=== PATIENT | male | born 1970 | race African-American/Black ===

== ENCOUNTER 2018-12-26 00:31 | Inpatient (IN) | payer SELFPAY ==
[2018-12-26 01:44] LABS: Troponin I 0.046 ng/mL (< 0.028)
[2018-12-26 03:10] LABS: Hemoglobin A1c 6.2 % (4.0-6.0)
[2018-12-26] MEDS ORDERED: Labetalol HCl 100 MG/20 ML VIAL ONE (03:46)
[2018-12-26 05:05] LABS: Troponin I 0.043 ng/mL (< 0.028)
[2018-12-26] MEDS ORDERED: Acetaminophen 325 MG TAB PO PRN (06:39)
[2018-12-26] MEDS ORDERED: Ondansetron PF 4 MG/2 ML Vial IVP PRN (06:39)
[2018-12-26] MEDS ORDERED: Sodium Chloride 0.9% 1,000 ML IV SCH (06:45)
--- NOTE | 2018-12-26 07:38 | ULT ---
PRELIMINARY REPORT/[facility]/EMERGENCY AFTER HOURS PROCEDURE: EXAM: US Duplex Right Lower Extremity Veins, Limited EXAM DATE/TIME: 12/26/2018 1:20 AM CLINICAL HISTORY: 48 years old, male; Pain and signs and symptoms; Edema, localized; Lower extremity, right; Leg, lower; Patient HX: Rle pain/edema from knee to ankle x 2 wks TECHNIQUE: Imaging protocol: Real-time Duplex ultrasound of the Right Lower Extremity with 2-D mahmood scale, color Doppler flow and spectral waveform analysis. Limited exam was focused on the right lower extremity veins. COMPARISON: No relevant prior studies available. FINDINGS: Right deep veins: The common femoral, femoral, proximal profunda femoral and popliteal veins are patent without thrombus. Normal Doppler waveforms. Normal compressibility and/or augmentation response. Right superficial veins: Saphenofemoral junction is patent without thrombus. Soft tissues: Rounded 2.4 x 2.4 x 7.1 cm right popliteal cyst with internal echoes. Lymph nodes: Rounded 2-4 cm right groin lymph nodes. IMPRESSION: 1. No evidence of deep venous thrombosis in the right lower extremity on current study. 2. Right groin lymph nodes. 3. Rounded 2.4 x 2.4 x 7.1 cm complex right popliteal cyst. Thank you for allowing us to participate in the care of your patient. Dictated and Authenticated by: Jones Walker MD 12/26/2018 3:07 AM Central Time ([place] & [place]) FINAL REPORT RIGHT LOWER EXTREMITY VENOUS DOPPLER ULTRASOUND: Date: 12/26/18 COMPARISON: None HISTORY: Edema, pain, swelling, assess for DVT FINDINGS: I agree with the preliminary [facility] report. Right lower extremity venous structures are asses sed with color flow and spectral analysis. The right common femoral vein, greater saphenous vein, profunda femoral vein, femoral vein, popliteal vein, and posterior tibial veins are patent. No eviden ce for DVT. Incidental note is made of a complex Vasquez's cyst measuring up to 7 cm. Mildly prominent inguinal nodes are noted on the right. IMPRESSION: No evidence for deep venous thrombosis of the right lower extremity. Code QA Transcribed Date/Time: 12/26/2018 8:32 AM
[2018-12-26 08:51] VITALS: BMI 43.1
[2018-12-26 12:05] LABS: #Basophils 0.1 thou/uL (0.0-0.2); #Eosinphils 0.1 thou/uL (0.0-0.7); #Lymphocytes 2.2 thou/uL (1.20-3.40); #Monocytes 0.7 thou/uL (0.11-0.59); %Basophils 0.9 % (0.0-1.0); %Eosinophils 1.9 % (0.0-10.0); %Lymphocytes 30.8 % (21.0-51.0); %Monocytes 10.1 % (0.0-10.0); %Neutrophils 56.3 % (42.0-75.0); Hemoglobin 13.4 g/dL (14.0-18.0); Mean Corpuscular HGB CONC 31.8 g/dL (32.0-36.0); Mean Corpuscular Hemoglobin 28.6 pg (27.0-31.0); Mean Platelet Volume 8.2 fL (7.4-10.4); Platelet Count 264 thou/uL (130-400); Red Blood Cell (RBC) Count 4.69 mill/uL (4.70-6.10); White Blood Cell (WBC) Count 7.2 thou/uL (4.8-10.8)
[2018-12-26 12:57] LABS: Anion Gap 14 mmol/L (10-20); BUN (Urea Nitrogen) 14 mg/dL (8.9-20.6); CK (CPK) 279 U/L (30-200); Calc. Creatinine Clearance 170 mL/min (70-130); Calcium 9.3 mg/dL (7.8-10.44); Carbon Dioxide 27 mmol/L (22-29); Chloride 103 mmol/L (98-107); Estimated GFR-MDRD 80; Glucose 96 mg/dL (70-105); Potassium 3.7 mmol/L (3.5-5.1); Sodium 140 mmol/L (136-145)
[2018-12-26 13:11] LABS: Lactic Acid 1.3 mmol/L (0.5-2.2)
[2018-12-26] MEDS ORDERED: hydrALAZINE 20 MG/ML VIAL SLOW IVP PRN ×2 (13:23→17:00)
[2018-12-26] MEDS ORDERED: Amlodipine 10 MG TAB PO SCH (13:30)
[2018-12-26] MEDS ORDERED: Losartan 25 MG TAB PO SCH (13:45)
--- NOTE | 2018-12-26 14:51 | RAD ---
RIGHT KNEE 4 VIEWS: Date; 12/26/18 HISTORY: Right lower extremity pain and swelling. FINDINGS: Minimal generalized soft tissue swelling/edema in the subcutaneous tissues of the knee and upper port ion of the leg. Minimal increased density in the suprapatellar recess, possibly some joint fluid. No evidence for acute fracture or dislocation. IMPRESSION: No acute fracture or dislocation. Very mild degenerative changes. Nonspecific subcutaneous fat strand ing and swelling. Possible joint effusion. POS: TPC
--- NOTE | 2018-12-26 14:55 | RAD ---
RIGHT TIBIA AND FIBULA 2 VIEWS: HISTORY: Right lower leg pain and swelling. FINDINGS: Diffuse subcutaneous fat stranding, probably edematous changes or some cellulitis. Soft tissue densi ty in the suprapatellar region, possibly joint effusion. No fracture, dislocation, or other signific ant acute osseous abnormality. IMPRESSION: Nonspecific diffuse subcutaneous fat stranding. Possible joint effusion of the knee. No other acute process. POS: TPC
--- NOTE | 2018-12-26 16:35 | HP ---
CHIEF COMPLAINT: Right leg swelling and shortness of breath. HISTORY OF PRESENT ILLNESS: Mr. Cortez is a 48-year-old man with a known history of uncontrolled hypertension and previous "mini strokes." The patient states he presented to the emergency department due to progressively worsening swelling and pain involving the right lower extremity for the last 2 weeks. He is able to bear weight and has normal range of motion, but has noted increasing discomfort. He also reports feeling short of breath for the last month, particularly with exertion and states that has also worsened. He denies having any underlying COPD or asthma. The patient denies any cough or hemoptysis. He also denies any trauma to the right lower leg. Has not had any associated fevers, chills, or sweats. Denies having any chest pain associated with shortness of breath. The patient states he has not followed up with his primary care physician for approximately a year and 5 months. He states this is due to financial reasons. In the emergency department, he was given labetalol due to uncontrolled blood pressure of 204/115. His blood pressure improved to 159 systolic. He also underwent a venous Doppler, which showed no evidence of DVT in the right lower extremity. He was noted to have a complex Vasquez cyst measuring up to 7 cm with mildly prominent inguinal nodes on the right. REVIEW OF SYSTEMS: The patient denies having any recent fevers, chills, or sweats. No headaches or dizziness. No chest pain or palpitations, but does report shortness of breath with exertion and at times at baseline. He states he has gained weight in the last 3 months. Has not had any abdominal pain or cramping. Reports moving his bowel normal. No urinary symptoms. Again, denies having any trauma or injuries to the right lower leg. Reports normal sensation. Denies having any wounds. All other review of systems apart from those mentioned above in HPI are negative. PAST MEDICAL HISTORY: 1. Uncontrolled hypertension. 2. Lost to follow up with primary care physician due to financial reasons. 3. History of CVA in the past without residual effects. 4. Obesity. 5. Hyperlipidemia. PAST SURGICAL HISTORY: Left knee surgery. SOCIAL HISTORY: The patient denies any tobacco use, alcohol use, or illicit drug use. ALLERGIES: ASPIRIN, CAUSES UNKNOWN REACTION. CURRENT MEDICATIONS: 1. Methocarbamol. 2. Atorvastatin. 3. Metoprolol succinate. 4. Amlodipine. 5. Losartan. PHYSICAL EXAMINATION: GENERAL: The patient appears obese, well developed, and in no acute distress. VITAL SIGNS: Temperature 97.6, pulse 72, respirations 16, O2 saturation 99% on 2 L by nasal cannula, blood pressure 180/112. HEENT: Normocephalic and atraumatic. Pupils are equal, round, and reactive to light. oropharynx is clear. NECK: Supple. No lymphadenopathy. LUNGS: Clear to auscultation bilaterally without any wheezes, rales, or rhonchi. CARDIAC: Regular rate and rhythm. ABDOMEN: Soft, nontender, and nondistended. Normoactive bowel sounds present. EXTREMITIES: Right lower leg notable for swelling compared to the left. Slightly warm to touch. No significant skin changes. No wounds. Sensation intact. Normal range of motion. Pedal pulses are present and equal bilaterally. NEUROLOGIC: Alert and oriented x3. No neuro deficits. SKIN: Without rash or jaundice. LABORATORY DATA: White blood count , hemoglobin 13.4, hematocrit 42.2 , and platelets 264. D-dimer 0.64. Sodium 140, potassium 3.7, chloride 103, carbon dioxide 27, BUN 14, creatinine 1.18, GFR 80, and glucose 96. Hemoglobin A1c 6.2. Lactic acid 1.3. Calcium 9.3. CK 279. Indeterminate troponins: 0.047, 0.046, 0.043. CRP 0.96. BNP 109.9. Procalcitonin 0.03. IMAGING DATA: As mentioned above in HPI. IMPRESSION AND PLAN: Mr. Cortez is a pleasant 48-year-old man, who is being admitted for management of the following. 1. Shortness of breath on exertion. This has been progressive for the last month. The patient is a nonsmoker. CT angiogram done in December 2018 showing no evidence of thromboembolism. BNP mildly raised at 109.9. We will obtain an echo. 2. Right lower leg swelling. No evidence of deep venous thrombosis on Doppler. No clear evidence of cellulitis. The patient is afebrile with a normal white count , normal lactic acid. It could be acute venous stasis. We will obtain x-rays to rule out any underlying bone abnormality such as malignancy. 3. Uncontrolled hypertension. We will resume his regular home medications. We will also initiate hydralazine p.r.n. 4. Gastrointestinal prophylaxis. 5. Deep venous thrombosis prophylaxis with MARGO hose stockings. 6. Full code status. His surrogate decision maker is his sister, Larissa Mclean. The patient's case was discussed with Dr. Bennett, who agrees with plan of care as described above. ADDENDUM: Patient with persistently elevated BP despite being given home meds. (188/113). Given hydralazine. Awaiting repeat BP. Flipped to inpatient re: malignant hypertension. Patient asymptomatic. Hydralazine increased to 20 mg IV every 4 hours prn, and we have added Labetalol 40 mg every 6 hours prn. Above as per Dr. Bennett recommendation. XR: showed 7cm bakers cyst, otherwise unremarkable. Swelling possibly due to cyst. For ortho fup as outpatient. Job ID: [id number] MTDD
[2018-12-26] MEDS ORDERED: Labetalol HCl 100 MG/20 ML VIAL SLOW IVP PRN (17:00)
[2018-12-26] MEDS: Atorvastatin Calcium 40 MG TAB PO SCH (19:45)
[2018-12-26] MEDS: Labetalol HCl 100 MG/20 ML VIAL SLOW IVP PRN (20:24)
[2018-12-27 02:27] LABS: Medtox Reader # READER 1; THC/Cannabinoid Screen Detected (NotDetected)
[2018-12-27 02:28] LABS: Amphetamine Not Detected (NotDetected); Barbiturates Screen Not Detected (NotDetected); Benzodiazepine Screen Not Detected (NotDetected); Cocaine Metabolite Screen Not Detected (NotDetected); Medtox Control Line Valid? VALID (VALID); Methadone Not Detected (NotDetected); Methamphetamine Not Detected (NotDetected); Opiate Screen Not Detected (NotDetected); Oxycodone Screen Not Detected (NotDetected); Phencyclidine (PCP) Not Detected (NotDetected); Tricyclic Screen Not Detected (NotDetected)
--- NOTE | 2018-12-27 08:25 | PDOC.PN ---
- Subjective Encounter Start Date: 12/27/18 Encounter Start Time: 08:23 Subjective: no complaints - Objective MAR Reviewed: Yes Vital Signs & Weight: Vital Signs (12 hours) Temp Pulse Resp BP BP Pulse Ox 12/27/18 07:16 98.4 F 76 16 157/105 H 95 12/27/18 03:55 98.0 F 80 22 H 167/100 H 95 12/26/18 23:32 75 159/89 H 12/26/18 20:44 84 167/97 H 12/26/18 20:34 166/90 H 12/26/18 20:33 181/97 H 12/26/18 20:24 74 181/97 H Weight Weight 345 lb 1.6 oz I&O: 12/26/18 12/27/18 12/28/18 06:59 06:59 06:59 Intake Total 720 Balance 720 Result Diagrams: 12/26/18 11:52 12/26/18 11:52 Phys Exam - Physical Examination Neck: no JVD Respiratory: clear to auscultation bilateral Cardiovascular: RRR, no significant murmur Gastrointestinal: soft, positive bowel sounds Musculoskeletal: edema present Dx/Plan (1) Hypertensive urgency Code(s): I16.0 - HYPERTENSIVE URGENCY Status: Acute (2) Edema Code(s): R60.9 - EDEMA, UNSPECIFIED Status: Acute (3) Demand ischemia Code(s): I24.8 - OTHER FORMS OF ACUTE ISCHEMIC HEART DISEASE Status: Acute (4) Dyslipidemia Code(s): E78.5 - HYPERLIPIDEMIA, UNSPECIFIED Status: Acute - Plan po apresoline added, increase metoprolol to 50 bid -: cont losartan, amlodipine -: asa * .
[2018-12-27] MEDS ORDERED: Non-Formulary Item 1 EACH (Losartan Potassium [Cozaar] 100 MG) PO SCH (09:00)
[2018-12-27] MEDS ORDERED: Losartan 25 MG TAB PO SCH (09:00)
[2018-12-27] MEDS: Amlodipine 10 MG TAB PO SCH (09:19)
[2018-12-27] MEDS: hydrALAZINE 25 MG TAB PO SCH ×2 (09:19→19:48)
[2018-12-27] MEDS: Metoprolol Tartrate 50 MG TAB PO SCH ×2 (09:25→19:49)
[2018-12-27] MEDS: Labetalol HCl 100 MG/20 ML VIAL SLOW IVP PRN (16:05)
[2018-12-27] MEDS: Atorvastatin Calcium 40 MG TAB PO SCH (19:49)
[2018-12-28] MEDS: hydrALAZINE 25 MG TAB PO SCH ×2 (09:16→20:32)
[2018-12-28] MEDS: Amlodipine 10 MG TAB PO SCH (09:16)
[2018-12-28] MEDS: Metoprolol Tartrate 50 MG TAB PO SCH ×2 (09:16→20:32)
[2018-12-28] MEDS ORDERED: Labetalol HCl 100 MG/20 ML VIAL SLOW IVP PRN (10:38)
[2018-12-28] MEDS ORDERED: cloNIDine 0.1 MG TAB PO PRN (10:38)
[2018-12-28] MEDS: Atorvastatin Calcium 40 MG TAB PO SCH (20:32)
--- NOTE | 2018-12-28 22:13 | PDOC.PN ---
- Subjective Encounter Start Date: 12/28/18 Encounter Start Time: 10:30 Patient seen and examined for HTN urgency. No CP/palpitations/ hematuria/flank pain. No new complaints. No overnight events - Objective MAR Reviewed: Yes Vital Signs & Weight: Vital Signs (12 hours) Temp Pulse Resp BP BP BP Pulse Ox 12/28/18 20:32 167/94 H 12/28/18 20:00 98.4 F 70 18 167/94 H 95 12/28/18 18:35 182/107 H 12/28/18 17:45 99.4 F 71 18 179/108 H 94 L 12/28/18 12:09 98.7 F 73 18 174/111 H 98 Weight Weight 345 lb 1.6 oz I&O: 12/27/18 12/28/18 12/29/18 06:59 06:59 06:59 Intake Total 720 1300 1250 Output Total 1200 975 Balance 720 100 275 Result Diagrams: 12/26/18 11:52 12/26/18 11:52 EKG Reviewed by me: Yes (Tele SR) Phys Exam - Physical Examination Constitutional: NAD Respiratory: no wheezing, no rhonchi Cardiovascular: RRR, no rub Gastrointestinal: soft, non-tender, positive bowel sounds Musculoskeletal: no edema Dx/Plan - Plan DVT proph w/SCDs IMPRESSION: Hypertensive urgency Demand ischemia/Type 2 SD Dyslipidemia Cannabis abuse Impaired glucose tolerance IMANI Morbid Obesity BMI 43.1 PLAN: Cont Metoprolol Cont Amlodipine Cont Hydralazine Counselled on HTN Sleep study as outpt Review of Systems - Review of Systems Respiratory: negative: Cough, Dry, Shortness of Breath, Hemoptysis, SOB with Excertion, Pleuritic Pain, Sputum, Wheezing Cardiovascular: negative: chest pain, palpitations, orthopnea, paroxysmal nocturnal dyspnea, edema, light headedness, other Gastrointestinal: negative: Nausea, Vomiting, Abdominal Pain, Diarrhea, Constipation, Melena, Hematochezia, Other - Medications/Allergies Allergies/Adverse Reactions: Allergies Allergy/AdvReac Type Severity Reaction Status Date / Time aspirin Allergy Verified 12/26/18 08:54 Medications: Current Medications Amlodipine Besylate (Norvasc) 10 mg PO DAILY [facility] Last Admin: 12/28/18 09:16 Dose: 10 mg Atorvastatin Calcium (Lipitor) 40 mg PO HS [facility] Last Admin: 12/28/18 20:32 Dose: 40 mg Clonidine (Catapres) 0.1 mg PO Q4H PRN PRN Reason: SBP Greater Than 180 Last Admin: 12/28/18 18:35 Dose: 0.1 mg Hydralazine HCl (Apresoline) 75 mg PO BID [facility] Last Admin: 12/28/18 20:32 Dose: 75 mg Labetalol HCl (Normodyne) 10 mg SLOW IVP Q4H PRN PRN Reason: Systolic BP > 180 Metoprolol Tartrate (Lopressor) 50 mg PO BID [facility] Last Admin: 12/28/18 20:32 Dose: 50 mg Sodium Chloride (Flush - Normal Saline) 10 ml IVF Q12HR [facility] Last Admin: 12/28/18 20:35 Dose: 10 ml Sodium Chloride (Flush - Normal Saline) 10 ml IVF PRN PRN PRN Reason: Saline Flush
[2018-12-29] MEDS: Amlodipine 10 MG TAB PO SCH (08:50)
[2018-12-29] MEDS: hydrALAZINE 25 MG TAB PO SCH (08:50)
[2018-12-29] MEDS: Metoprolol Tartrate 50 MG TAB PO SCH (09:36)
[2018-12-29 10:50] VITALS: BP 150/88
--- NOTE | 2018-12-29 12:31 | PDOC.EVN ---
Event Note - Event Note Event Note: Patient was advised to take extra dose of Hydralazine if BP >160. Daily BP monitoring advised - Patient stated understanding.
--- NOTE | 2018-12-29 12:51 | DIS ---
DATE OF ADMISSION: 12/26/2018 DATE OF DISCHARGE: 12/29/2018 DISCHARGE DISPOSITION: Home. FOLLOWUP: Follow up with primary care physician at [facility] in 1 week. ALLERGIES: THE PATIENT IS ALLERGIC TO ASPIRIN. THE PATIENT WAS SEEN ON THE DAY OF DISCHARGE. DENIES ANY NEW COMPLAINTS. NO CHEST PAIN, SHORTNESS OF BREATH, PALPITATIONS. DISCHARGE MEDICATIONS: 1. Amlodipine 10 mg daily. 2. Carvedilol 6.25 mg b.i.d. 3. Hydralazine 50 mg b.i.d. The patient was advised to monitor blood pressure on a daily basis and to maintain a log. The patient was also extensively counseled on DASH diet. He was counseled on impaired glucose tolerance as well. SIGNIFICANT LABORATORY DATA: Hemoglobin A1c 6.2. Troponin 0.043. Sodium 140, potassium 3.7. WBC 7.2 with hemoglobin 13.4. Urine drug screen positive for cannabinoid. Echocardiogram showed left ventricular ejection fraction of 55% to 60% with moderate concentric left ventricular hypertrophy, mild mitral regurgitation, and mild tricuspid regurgitation. Right lower extremity Doppler was negative for DVT. BRIEF HOSPITAL COURSE: The patient is a 48-year-old male with hypertension, currently not compliant with medications, presented to the emergency room with right lower extremity swelling along with shortness of breath. His blood pressure in the emergency room was 223/129. Right lower extremity Doppler was negative for DVT. He was transferred from [place] [facility] to this facility for hospital admission. Please refer to the history and physical for further details. The patient was admitted to the hospital with a diagnosis of hypertensive urgency. The blood pressure medicines were optimized by Dr. Joyce Bennett. I took over the patient yesterday. His blood pressure has remained stable. His blood pressure at the time of discharge is 150/88. He was extensively counseled on lifestyle modification. Cannabis cessation was emphasized. He will also require a sleep study as outpatient. The risks not limited to life threatening stroke from hypertension discussed with the patient. He stated understanding. He was extensively counseled to be compliant with all of his antihypertensives. One-month supply of the medications have been arranged from [facility]. He appears stable for discharge. FINAL DIAGNOSES: 1. Shortness of breath secondary to hypertensive urgency. 2. Right lower extremity swelling. Deep vein thrombosis ruled out. 3. Elevated troponins in the indeterminate range secondary to demand ischemia/type 2 myocardial infarction. 4. Hypertensive heart disease. 5. Dyslipidemia. 6. Cannabis abuse. 7. Impaired glucose tolerance. 8. Suspected obstructive sleep apnea. 9. Morbid obesity with a BMI of 43.1. PLAN: Plan was discussed with the patient in detail. He stated understanding. Job ID: [id number]
[2018-12-29 13:24] VITALS: TEMP 98.4
== END 2018-12-29 15:07 | disposition home or self-care (01) | DRG 281 ==
LOC: ERS 00:31 → 2NO 07:01
PROVIDERS: ADMIT Hospitalist; ATTEND Hospitalist
DX: I16.0 Hypertensive urgency (principal); I21.A1 Myocardial infarction type 2; Z68.41 Body mass index [BMI] 40.0-44.9, adult; E66.9 Obesity, unspecified; E78.5 Hyperlipidemia, unspecified; M71.20 Synovial cyst of popliteal space [Baker], unspecified knee; R60.9 Edema, unspecified; F12.10 Cannabis abuse, uncomplicated; G47.33 Obstructive sleep apnea (adult) (pediatric); E66.01 Morbid (severe) obesity due to excess calories; R73.02 Impaired glucose tolerance (oral); Z86.73 Personal history of transient ischemic attack (TIA), and cerebral infarction without residual deficits; Z88.8 Allergy status to other drugs, medicaments and biological substances; Z71.51 Drug abuse counseling and surveillance of drug abuser
CPT/HCPCS: 36415; 80048; 80306; 82550; 83036; 83605; 83880; 84145; 84484; 85025; 85379; 86140; 93306; 94660; 96374; J0360

== ENCOUNTER 2020-02-04 00:28 | Inpatient (IN) | payer OTHER ==
[2020-02-04 01:27] VITALS: BMI 44.5
[2020-02-04] MEDS ORDERED: Acetaminophen 325 MG TAB PO PRN (02:27)
[2020-02-04] MEDS ORDERED: Senokot S 8.6-50 MG TAB PO PRN (02:27)
[2020-02-04] MEDS ORDERED: Diabetic Tussin 200 MG/10 ML UDCUP PO PRN (02:34)
[2020-02-04] MEDS: hydrALAZINE 20 MG/ML VIAL SLOW IVP PRN ×2 (02:40→16:11)
[2020-02-04] MEDS ORDERED: Potassium Chloride 20 MEQ TAB PO SCH (02:45)
[2020-02-04 03:00] LABS: #Basophils 0.1 thou/uL (0.0-0.2); #Eosinphils 0.1 thou/uL (0.0-0.7); #Lymphocytes 2.6 thou/uL (1.20-3.40); #Monocytes 0.8 thou/uL (0.11-0.59); #Neutrophils 4.7 thou/uL (1.40-6.50); %Basophils 0.6 % (0.0-1.0); %Eosinophils 1.1 % (0.0-10.0); %Lymphocytes 31.5 % (21.0-51.0); %Monocytes 9.6 % (0.0-10.0); %Neutrophils 57.3 % (42.0-75.0); Hemoglobin 13.8 g/dL (14.0-18.0); Mean Corpuscular HGB CONC 32.5 g/dL (32.0-36.0); Mean Corpuscular Hemoglobin 29.5 pg (27.0-31.0); Mean Corpuscular Volume 90.8 fL (78.0-98.0); Mean Platelet Volume 8.6 fL (7.4-10.4); Platelet Count 255 thou/uL (130-400); RBC Distribution Width 13.5 % (11.5-14.5); Red Blood Cell (RBC) Count 4.68 mill/uL (4.70-6.10); White Blood Cell (WBC) Count 8.2 thou/uL (4.8-10.8)
[2020-02-04 03:19] LABS: Troponin I 0.117 ng/mL (< 0.028)
[2020-02-04 03:23] LABS: ALT (SGPT) 25 U/L (8-55); AST (SGOT) 24 U/L (5-34); Albumin 4.1 g/dL (3.5-5.0); Alkaline Phosphatase 82 U/L (40-110); Anion Gap 14 mmol/L (10-20); BUN (Urea Nitrogen) 12 mg/dL (8.9-20.6); Bilirubin, Total 0.6 mg/dL (0.2-1.2); Calc. Creatinine Clearance 176 mL/min (70-130); Calcium 9.3 mg/dL (7.8-10.44); Carbon Dioxide 27 mmol/L (22-29); Cardiac Risk 3.7 (Less than 4.5); Chloride 102 mmol/L (98-107); Cholesterol 162 mg/dl (< 200 Desired); Estimated GFR-MDRD 81; Globulin 3.3 g/dL (2.4-3.5); Glucose 107 mg/dL (70-105); HDL Cholesterol 44 mg/dL (>60 Neg Risk); LDL Cholesterol, Calculated 95 mg/dL; Potassium 3.6 mmol/L (3.5-5.1); Protein, Total 7.4 g/dL (6.0-8.3); Sodium 139 mmol/L (136-145); Triglycerides 117 mg/dL (Less than 150)
--- NOTE | 2020-02-04 03:26 | HP ---
PRIMARY CARE PHYSICIAN: None. CHIEF COMPLAINT: Shortness of breath. HISTORY OF PRESENT ILLNESS: Mr. Cortez is a 49-year-old man, who went to the ER in [place] complaining of a cough and shortness of breath x3 days. The cough is nonproductive. He reports that he is supposed to be taking meds for hypertension, but has not been taking it for quite some time. He has been unable to see his primary care or get them refilled for quite some time due to finances. He reports he has chronic knee pain and back pain which cause him to be disabled and unable to work. He denies any fevers, any abdominal pain, denies any chills. Supposedly he has some sleep apnea, but he does not have a CPAP machine at home. Past medical history is pertinent for hypertension, hyperlipidemia, has had a TIA in the past. In the emergency room over in [place], they did a chest x-ray which was unremarkable. Lab work; hemoglobin 13.3, white blood cell count is 9.2, hematocrit 42. Chemistry; potassium 3.2. CK was 558. Troponin in the indeterminate range of 0.106. BNP is 143. When he was in the emergency room, when they triaged him, his blood pressure was significantly high. Initially, it was 237/137. By the time he was transferred to [facility] for admission, it was down to 176/122. He was given Lovenox, Nitro-Bid transdermal 1 inch, nifedipine 30 mg at 2244 and then sent over to [place] for admission. He did have an echocardiogram in December 2018 which showed EF of 55% to 60% and a small amount of pericardial effusion at that time. The patient has been admitted over for further management of his blood pressure. He has also had a COVID-19 test that was done here, but ordered in [place]. He was admitted here in December 2018 for similar symptoms and was put on several medications which evidently he has not had filled in quite some time. REVIEW OF SYSTEMS: Denies fever or chills. Reports shortness of breath and a cough. Denies any fevers. Denies any abdominal pain, nausea, vomiting, or diarrhea. Does report pain in the back of his legs which he reports is chronic. PAST MEDICAL HISTORY: Pertinent for uncontrolled hypertension, history of a CVA in the past without any residual effects, obesity, hyperlipidemia, hypertension. PAST SURGICAL HISTORY: He has had surgery on his left knee. SOCIAL HISTORY: Denies any alcohol or drug use. No smoking history. ALLERGIES: ASPIRIN. CURRENT MEDICATIONS: He is not sure. In our system, he has amlodipine 10 mg p.o. daily, Coreg 6.25 mg p.o. b.i.d., and hydralazine 50 mg p.o. b.i.d. that he was discharged on in December 2018. PHYSICAL EXAMINATION: VITAL SIGNS: Blood pressure 176/122, pulse is 82, respiratory rate is 20, temperature is 98.8, PO2 sats are 98% on room air. CONSTITUTIONAL: The patient is nontoxic appearing. He is alert and oriented to person, place, and time. HEAD: Atraumatic and normocephalic. EYES: Pupils are equally round and reactive to light. Extraocular muscles are intact. ENT: Mouth exam is normal. Mucous membranes are moist. NECK: Normal range of motion. Trachea is midline. RESPIRATORY: Chest expansion is equal. Scattered rales in the bilateral bases, otherwise clear. CARDIOVASCULAR: S1, S2. No abnormal heart sounds. ABDOMEN: Nontender. Bowel sounds are heard. BACK: Normal range of motion. No tenderness. UPPER EXTREMITIES: Normal range of motion. Motor strength is normal. Radial pulses are normal. LOWER EXTREMITIES: Normal range of motion. Motor strength is normal. Pedal pulses are normal. There is no edema noted. NEURO: The patient is oriented to person, place, and time. Speech is normal. SKIN: Warm and dry visualized. IMAGING STUDIES: EKG: Normal sinus rhythm, beats per minute at 84, nonspecific inferior T-waves, ST segments are normal. ASSESSMENT AND PLAN: 1. Hypertensive urgency. We will restart his home medications that we had him on here a year ago. We are awaiting a call from his sister to verify which medications he is supposed to be taking. We will add p.r.n. medications for coverage as needed. Add an echocardiogram at a D-dimer. 2. With the shortness of breath, a COVID-19 test was ordered that was done here once he arrived. We will continue to trend this. We have added a ferritin level and a D-dimer. He will be put in isolation pending COVID test results. 3. Hypokalemia. This will be repleted. 4. History of hyperlipidemia. We will check a fasting lipid. 5. History of hypertension, see #1. 6. We will recheck labs in the morning. We have added a TSH, ferritin, D-dimer, CBC. 7. We will trend troponins as his is in the indeterminate range, less likely due to the hypertension. 8. DVT and GI prophylaxis started. Case discussed with Dr. Strauss, who agrees with plan. Job ID: [id number]
[2020-02-04 06:01] LABS: Hemoglobin A1c 6.2 % (4.0-6.0)
[2020-02-04 06:21] LABS: Troponin I 0.093 ng/mL (< 0.028)
[2020-02-04 06:36] LABS: Ferritin 138.78 ng/mL (22-322); Thyroid Stimulating Hormone 0.8498 uIU/mL (0.35-4.94)
[2020-02-04] MEDS: Enoxaparin Sodium 40 MG/0.4 ML SYRINGE SC SCH (09:04)
[2020-02-04] MEDS: Carvedilol 6.25 MG TAB PO SCH ×2 (09:04→19:16)
[2020-02-04] MEDS: hydrALAZINE 25 MG TAB PO SCH ×2 (09:04→21:21)
[2020-02-04] MEDS: Famotidine 20 MG TAB PO SCH ×2 (09:06→21:21)
--- NOTE | 2020-02-04 10:27 | PDOC.HOSPP ---
- Subjective Encounter Date: 02/04/20 Encounter Time: 10:26 Subjective: less sob, much more comfortable - Objective Vital Signs & Weight: Vital Signs (12 hours) Temp Pulse Resp BP BP BP Pulse Ox 02/04/20 09:15 98.2 F 71 16 158/103 H 97 02/04/20 09:04 73 02/04/20 04:15 98.5 F 73 20 169/88 H 02/04/20 02:40 81 02/04/20 01:54 97 02/04/20 01:24 98.3 F 81 20 198/134 H 97 Weight Weight 356 lb 6.4 oz I&O: 02/03/20 02/04/20 02/05/20 06:59 06:59 06:59 Intake Total 450 Output Total 650 Balance -200 Result Diagrams: 02/04/20 02:46 02/04/20 02:46 Hospitalist ROS - Medication Medications: Active Medications Generic Name Dose Route Start Last Admin Trade Name Freq PRN Reason Stop Dose Admin Acetaminophen 650 mg 02/04/20 02:27 02/04/20 04:17 Tylenol PO 650 mg Q4H PRN Administration Headache/Fever/Mild Pain (1-3) Carvedilol 6.25 mg 02/04/20 08:00 02/04/20 09:04 Coreg PO 6.25 mg BID-WM JESSICA Administration Enoxaparin Sodium 40 mg 02/04/20 09:00 02/04/20 09:04 Lovenox SC 40 mg 0900 JESSICA Administration Famotidine 20 mg 02/04/20 09:00 02/04/20 09:06 Pepcid PO 20 mg BID JESSICA Administration Hydralazine HCl 10 mg 02/04/20 02:29 02/04/20 02:40 Apresoline SLOW IVP 10 mg Q4H PRN Administration Hypertension Hydralazine HCl 50 mg 02/04/20 09:00 02/04/20 09:04 Apresoline PO 50 mg BID JESSICA Administration - Exam General Appearance: awake alert Neck: no JVD Heart: RRR, no murmur Respiratory: CTAB Gastrointestinal: soft, normal bowel sounds Extremities: no edema Hosp A/P (1) Demand ischemia Code(s): I24.8 - OTHER FORMS OF ACUTE ISCHEMIC HEART DISEASE Status: Acute (2) Dyslipidemia Code(s): E78.5 - HYPERLIPIDEMIA, UNSPECIFIED Status: Acute (3) Hypertensive urgency Code(s): I16.0 - HYPERTENSIVE URGENCY Status: Acute - Plan seriously doubt covid-cxr ok- acute markers normal ont coreg, hydralazine, add amlodipine
[2020-02-04] MEDS: Amlodipine 5 MG TAB PO SCH (11:33)
[2020-02-04 15:29] LABS: SARS-CoV-2 MS2 Positive; SARS-CoV-2 N Gene Negative; SARS-CoV-2 S Gene Negative; SARS-CoV-2 orf1ab Negative
--- NOTE | 2020-02-04 16:08 | PDOC.EVN ---
Event Note - Event Note Event Note: covid, inflammatory markers neg- DC isolation
[2020-02-05] MEDS: Amlodipine 5 MG TAB PO SCH (08:23)
[2020-02-05] MEDS: Famotidine 20 MG TAB PO SCH ×2 (08:24→21:00)
[2020-02-05] MEDS: Enoxaparin Sodium 40 MG/0.4 ML SYRINGE SC SCH (08:24)
[2020-02-05] MEDS: Carvedilol 6.25 MG TAB PO SCH ×2 (08:24→17:39)
[2020-02-05] MEDS: hydrALAZINE 25 MG TAB PO SCH ×2 (08:24→21:00)
[2020-02-05] MEDS ORDERED: Hydrochlorothiazide 25 MG TAB PO SCH ×2 (09:00→14:45)
[2020-02-05] MEDS ORDERED: Senokot S 8.6-50 MG TAB PO PRN (11:15)
--- NOTE | 2020-02-05 13:59 | PDOC.HOSPP ---
- Subjective Encounter Date: 02/05/20 Encounter Time: 13:56 Subjective: much improved - Objective Vital Signs & Weight: Vital Signs (12 hours) Temp Pulse Resp BP BP Pulse Ox 02/05/20 11:23 98.1 F 79 16 171/92 H 98 02/05/20 08:24 80 171/96 H 02/05/20 08:23 80 171/96 H 02/05/20 08:10 97.4 F L 80 14 171/96 H 94 L 02/05/20 04:00 98.0 F 67 20 180/99 H 95 Weight Weight 354 lb 3.2 oz I&O: 02/04/20 02/05/20 02/06/20 06:59 06:59 06:59 Intake Total 450 300 480 Output Total 650 1925 500 Balance -200 -1625 -20 Result Diagrams: 02/04/20 02:46 02/04/20 02:46 Hospitalist ROS - Medication Medications: Active Medications Generic Name Dose Route Start Last Admin Trade Name Freq PRN Reason Stop Dose Admin Acetaminophen 650 mg 02/04/20 02:27 02/04/20 04:17 Tylenol PO 650 mg Q4H PRN Administration Headache/Fever/Mild Pain (1-3) Amlodipine Besylate 5 mg 02/04/20 09:00 02/05/20 08:23 Norvasc PO 5 mg DAILY JESSICA Administration Carvedilol 6.25 mg 02/04/20 08:00 02/05/20 08:24 Coreg PO 6.25 mg BID-WM JESSICA Administration Enoxaparin Sodium 40 mg 02/04/20 09:00 02/05/20 08:24 Lovenox SC 40 mg 0900 JESSICA Administration Famotidine 20 mg 02/04/20 09:00 02/05/20 08:24 Pepcid PO 20 mg BID JESSICA Administration Hydralazine HCl 10 mg 02/04/20 02:29 02/04/20 16:11 Apresoline SLOW IVP 10 mg Q4H PRN Administration Hypertension - Exam General Appearance: awake alert Neck: no JVD Heart: RRR, no murmur Respiratory: CTAB Gastrointestinal: soft, normal bowel sounds Extremities: no edema Hosp A/P (1) Demand ischemia Code(s): I24.8 - OTHER FORMS OF ACUTE ISCHEMIC HEART DISEASE Status: Acute (2) Dyslipidemia Code(s): E78.5 - HYPERLIPIDEMIA, UNSPECIFIED Status: Acute (3) Hypertensive urgency Code(s): I16.0 - HYPERTENSIVE URGENCY Status: Acute (4) Elevated troponin I level Code(s): R79.89 - OTHER SPECIFIED ABNORMAL FINDINGS OF BLOOD CHEMISTRY Status : Acute - Plan cont coreg, amlodipine, add hctstress test for increased troponin?
[2020-02-05] MEDS ORDERED: hydrALAZINE 25 MG TAB PO SCH (15:00)
[2020-02-05 15:41] LABS: Troponin I 0.066 ng/mL (< 0.028)
[2020-02-06] MEDS: Famotidine 20 MG TAB PO SCH ×2 (12:06→20:12)
[2020-02-06] MEDS: hydrALAZINE 25 MG TAB PO SCH ×2 (12:06→20:13)
[2020-02-06] MEDS: Carvedilol 6.25 MG TAB PO SCH ×2 (12:06→17:59)
[2020-02-06] MEDS: Amlodipine 5 MG TAB PO SCH (12:07)
[2020-02-06] MEDS: Hydrochlorothiazide 25 MG TAB PO SCH (12:07)
[2020-02-06] MEDS: Enoxaparin Sodium 40 MG/0.4 ML SYRINGE SC SCH (12:08)
[2020-02-06] MEDS ORDERED: Regadenoson 0.4 MG/5 ML SYRINGE ONE (13:21)
--- NOTE | 2020-02-06 14:57 | PDOC.HOSPP ---
- Subjective Encounter Date: 02/06/20 Encounter Time: 14:55 Subjective: feels fine , no chest pain - Objective Vital Signs & Weight: Vital Signs (12 hours) Temp Pulse Resp BP BP BP Pulse Ox 02/06/20 12:07 74 197/125 H 02/06/20 12:06 74 197/125 H 02/06/20 11:58 98.3 F 88 14 197/125 H 95 02/06/20 08:10 98 F 74 14 132/95 H 92 L 02/06/20 03:09 98.4 F 85 18 176/119 H 96 Weight Weight 353 lb I&O: 02/05/20 02/06/20 02/07/20 06:59 06:59 06:59 Intake Total 300 1070 240 Output Total 1925 2400 300 Balance -1625 -1330 -60 Result Diagrams: 02/04/20 02:46 02/04/20 02:46 Additional Labs: Accuchecks 02/04/20 18:02 POC Glucose 127 H Hospitalist ROS - Medication Medications: Active Medications Generic Name Dose Route Start Last Admin Trade Name Freq PRN Reason Stop Dose Admin Acetaminophen 650 mg 02/04/20 02:27 02/04/20 04:17 Tylenol PO 650 mg Q4H PRN Administration Headache/Fever/Mild Pain (1-3) Enoxaparin Sodium 40 mg 02/04/20 09:00 02/06/20 12:08 Lovenox SC 40 mg 0900 JESSICA Administration Famotidine 20 mg 02/04/20 09:00 02/06/20 12:06 Pepcid PO 20 mg BID JESSICA Administration Hydralazine HCl 10 mg 02/04/20 02:29 02/04/20 16:11 Apresoline SLOW IVP 10 mg Q4H PRN Administration Hypertension Hydralazine HCl 75 mg 02/05/20 21:00 02/06/20 12:06 Apresoline PO 75 mg BID JESSICA Administration Hydrochlorothiazide 12.5 mg 02/06/20 09:00 02/06/20 12:07 Hydrochlorothiazide PO 12.5 mg DAILY JESSICA Administration - Exam General Appearance: awake alert Neck: no JVD Heart: RRR Respiratory: CTAB Gastrointestinal: soft, normal bowel sounds Extremities: no edema Hosp A/P (1) Demand ischemia Code(s): I24.8 - OTHER FORMS OF ACUTE ISCHEMIC HEART DISEASE Status: Acute (2) Dyslipidemia Code(s): E78.5 - HYPERLIPIDEMIA, UNSPECIFIED Status: Acute (3) Hypertensive urgency Code(s): I16.0 - HYPERTENSIVE URGENCY Status: Acute (4) Elevated troponin I level Code(s): R79.89 - OTHER SPECIFIED ABNORMAL FINDINGS OF BLOOD CHEMISTRY Status : Acute - Plan increse coreg, amlodipine stress test will be 2 day test
[2020-02-07] MEDS ORDERED: Furosemide 20 MG TAB PO SCH (09:00)
[2020-02-07] MEDS ORDERED: Amlodipine 10 MG TAB PO SCH (09:00)
[2020-02-07] MEDS ORDERED: Atorvastatin Calcium 40 MG TAB PO SCH (09:00)
[2020-02-07] MEDS ORDERED: Clopidogrel Bisulfate 75 MG TAB PO SCH (09:00)
[2020-02-07] MEDS: hydrALAZINE 25 MG TAB PO SCH (10:06)
[2020-02-07] MEDS: Carvedilol 6.25 MG TAB PO SCH (10:07)
[2020-02-07] MEDS: Hydrochlorothiazide 25 MG TAB PO SCH (10:07)
[2020-02-07] MEDS: Famotidine 20 MG TAB PO SCH (10:07)
[2020-02-07] MEDS: Enoxaparin Sodium 40 MG/0.4 ML SYRINGE SC SCH (10:08)
--- NOTE | 2020-02-07 10:20 | NM ---
EXAM: CARDIAC SPECT HISTORY: Chest pain, hypertension, dyslipidemia, TIA TECHNIQUE: A myocardial perfusion scan was performed using the single isotope 2 day protocol with eflix hnetium 99m sestamibi. [28 mCi] was injected intravenously for the rest exam followed by 33 mCifor the stress study. Pharmacologic stress with Lexiscan was monitored and interpreted by Dr. Miller FINDINGS: The left ventricular cavity is dilated. No fixed or reversible defects are seen. Gated SPECT LVEF: 42% Wall motion exam: Global hypokinesis IMPRESSION: No evidence of reversible ischemia
[2020-02-07 11:54] VITALS: TEMP 98.5
[2020-02-07 12:50] VITALS: BP 143/82
--- NOTE | 2020-02-08 11:34 | PQF ---
CLINICAL DOCUMENTATION CLARIFICATION FORM: Dear : ___Donald Conyers Date / Time: _02/08/2020 Please exercise your independent, professional judgment in responding to the clarification form. Clinical indicators are provided on the bottom of this form for your review Please check appropriate box(es): AMI TYPE: [ ] Type 1 ME (STEMI) (please also specify site and artery see below) SITE: [ ] Anterior [ ] Apical [ ] Lateral [ ] Inferior [ ] Posterior [ ] Q Wave [ ] Septal [ ] Unable to Determine SPECIFIC ARTERY (Based on site) [ ] Left Main Coronary [ ] Diagonal [ ] Left Anterior Descending [ ] Oblique Marginal [ ] Right Coronary Artery [ ] Left Circumflex [ ] Unable to Determine ONSET OF INFARCTION: [ ] Onset Less than 4 weeks of admission [ ] Onset Greater than 4 weeks of admission [ ] Unable to determine [ ] Type 1 ME (NSTEMI) [ x] Type 2 ME (T2MI) secondary to: [ x] hypertension [ ] arrhythmia [ ] Infection [ ] severe anemia [ ] ischemic stroke [ ] renal failure [ ] heart failure [ ] other [ ] Type 3 ME (sudden without cardiac biomarker and/or with evidence of ME by autopsy) [ ] Type 4-5 ME (ME with PCI/PCI stent thrombosis, PCI re-stenosis or CABG related ME) [ ] Myocardial Infarction with no obstructive coronary atherosclerosis (MINOCA) (MINOCA is a classification independent from the UDMI and includes patients with Type I & Type 2 ME) [ ] Acute non-ischemic myocardial injury in the absence of ME [ ] Unstable Angina [ ] ACS [ ] Other: [ ] Takotsubo syndrome [ ] Other diagnosis ___ [ ] Unable to determine In addition, please specify: Present on Admission (POA): [ x ] Yes [ ] No [ ] Unable to determine Physician Signature: Date/Time: For continuity of documentation, please document condition throughout progress notes and discharge summary. Thank You. To be completed by CDI/Coding staff for physician review: Present Clinical Indicators - Signs / Symptoms / Labs Results and Location in Medical Record [ x] Troponin in the indeterminate range of 0.106, BNP is 143 H&P, 02/03, O Mukesh Lizeth [ x] Demand ischemia H&P, 02/03, OBriant Lizeth [ x] Troponin: 0.117H, 0.093H on 02/03, 0.066H on 02/04 Laboratory report [ x] Elevated troponin I level [facility], 02/05, Ina Bennett MD [ x] EF is visually estimated at 6965% MARK, 02/04, Sarah Brooks MD Present Risk Factors Results and Location in Medical Record [ x] Hypertensive urgency H&P, 02/03, OBriant Liezth [ x] Hypokalemia H&P, 02/03, OBriant Lizeth Present Treatments Results and Location in Medical Record [ x] Coreg.PO SEP, 02/03 [ x] Furosemide.PO SEP< 02/06 CDS/Guard Range Signature: Sarika Barksdale Phone #: [phone] Date/Time:02/08/2020 This is a permanent part of the Medical Record [facility]
--- NOTE | 2020-02-08 12:45 | DIS ---
DATE OF ADMISSION: 02/04/2020 DATE OF DISCHARGE: 02/07/2020 DISCHARGE DISPOSITION: To home. PRIMARY DISCHARGE DIAGNOSES: 1. Hypertensive urgency, resolved. 2. Chest pain, resolved. 3. Dyslipidemia. 4. Obesity with BMI of 44. PROCEDURES DONE DURING HOSPITALIZATION: Echo with 2D Doppler done showed EF of 60% with moderate LVH. Nuclear stress test done showed no evidence of reversible ischemia. There was global hypokinesis seen on the stress test. H and H 13 and 42, platelet count 255, MCV is 90. D-dimer 0.4. HbA1c 6.2. Total cholesterol 162, triglycerides 117, LDL 95, HDL 44. COVID-19 PCR was negative. DISCHARGE MEDICATIONS: 1. Losartan 100 mg p.o. daily. 2. Metoprolol succinate extended release 100 mg daily. 3. Hydrochlorothiazide 25 mg daily. 4. Hydralazine 75 mg twice daily. 5. Lipitor 40 mg p.o. daily. 6. Norvasc 10 mg p.o. daily. 7. Plavix 75 mg p.o. daily. ALLERGIES: TO ASPIRIN. DISCHARGE PLAN: The patient to follow up with his primary care physician in 1 week. The patient is also advised to check blood pressure and pulse twice daily and record for a period of 10 days to follow up with primary care physician. BRIEF COURSE DURING HOSPITALIZATION: The patient initially got admitted on the with complaints of shortness of breath. His initial blood pressure was 237/137. In view of this, the patient was admitted to telemetry. He has had slow titration of his blood pressure done. The patient's echo revealed moderate LVH with normal ejection fraction. Once the hypertension was under control, he has had a nuclear stress test done, which did not reveal any reversible ischemia. Mr. Cortez was counseled with regard to medication compliance and dietary compliance. Case Management consultation was requested for help with medications. Please note, I have seen and examined the patient on the day of discharge. Job ID: [id number]
== END 2020-02-07 16:00 | disposition home or self-care (01) | DRG 281 ==
LOC: 2SW 01:14 → OBSVTOIN 01:14 → 2NO 21:16
PROVIDERS: ADMIT Family Medicine; ATTEND Family Medicine
PROC: 8E0ZXY6 Isolation (ICD-10-PCS; principal; 2020-02-04)
DX: I16.0 Hypertensive urgency (principal); I21.A1 Myocardial infarction type 2; Z68.41 Body mass index [BMI] 40.0-44.9, adult; E66.9 Obesity, unspecified; E78.5 Hyperlipidemia, unspecified; Z20.828 Contact with and (suspected) exposure to other viral communicable diseases; I10 Essential (primary) hypertension; E87.6 Hypokalemia; Z86.73 Personal history of transient ischemic attack (TIA), and cerebral infarction without residual deficits; Z88.8 Allergy status to other drugs, medicaments and biological substances
CPT/HCPCS: 36415; 36416; 78452; 80053; 80061; 82728; 83036; 84443; 84484; 85025; 85379; 86140; 87635; 93017; 93306; 94760; 96372; 96374; 96376; A9500; G0378; J0360; J1650; J2785; U0003